=== PATIENT | male | born 1930 | race Caucasian/White ===

== ENCOUNTER 2016-05-13 08:58 | Emergency (ER) | payer MEDICARE, MEDICAID ==
[2016-05-13 08:59] VITALS: BMI 27.8
[2016-05-13 09:11] VITALS: TEMP 98.5
--- NOTE | 2016-05-13 09:13 | EDPRACDOC ---
- General Chief Complaint: Fall Stated Complaint: WEAKNESS Time Seen by Provider: 05/13/16 09:12 Information Source: Patient, Solutions Consultant - History of Present Illness Onset: this morning HPI: FALL ON THE WAY BACK TO THE BATHROOM. PT DOES NOT REMEMBER IF HE HIT HEAD. BROUGHT BY EMS. PER GRAND DAUGHTER FAMILY REPORTS PT MORE THAN LIKELY SLID OUT OF BED. SOME SOB. Allergies/Adverse Reactions: Allergies Penicillins Allergy (Verified 05/13/16 10:43) Hives* Home Medications: Ambulatory Orders Amitriptyline HCl [Elavil] 20 mg PO HS 03/15/14 Gabapentin 300 mg PO TID 03/15/14 Levothyroxine [Synthroid, Levoxyl] 88 mcg PO DAILY 03/15/14 Lubiprostone [Amitiza] 24 - 48 mcg PO DAILY 03/15/14 Omeprazole 40 mg PO DAILY 03/15/14 Ropinirole HCl 2 mg PO HS 03/15/14 Cholecalciferol (Vitamin D3) [Vitamin D3] 5,000 unit PO DAILY 12/10/14 Clopidogrel Bisulfate [Plavix] 75 mg PO DAILY 08/28/15 Furosemide [Lasix] 20 mg PO DAILY 08/28/15 Magnesium Oxide [Mag-Ox] 400 mg PO DAILY 08/28/15 Meclizine HCl [Antivert] 25 mg PO TID 08/28/15 Ranitidine HCl [Zantac] 300 mg PO HS 08/28/15 Rosuvastatin [Crestor] 10 mg PO DAILY 08/28/15 Methylcellulose [Fiber Therapy] 500 mg PO DAILY 11/21/15 Indomethacin 50 mg PO TID 12/06/15 Mometasone Furoate [Nasonex] 1 - 2 sprays ANY DAILY PRN 05/13/16 ED Past Medical History - History Reviewed Yes Nurses notes reviewed and agree except as marked - Patient Medical History Cardiac History: Reports: Coronary Artery Disease, Hypertension, Hypercholesterolemia Respiratory History: Reports: Asthma, COPD, Emphysema GI/ History: Reports: Gastroesophageal Reflux Psychological History: Denies: Depression, Substance Use Disorder Systemic History: Reports: Cancer (PROSTATE), Hypothyroidism Surgical History: Reports: Hernia Surgery (bilat inguinal) - Family Medical History Reports: Cancer (mother - "female organs"). Denies: Hypertension, Diabetes, Stroke, Cardiac Disorders - Social Medical History Smoking Status: Former smoker Social History: Denies: Substance Use Disorder EDM Review of Systems - Review of Systems ROS Negative Except as Marked: Yes All systems reviewed and were negative except as marked - Physical Exam Constitutional: Alert (Awake), No apparent distress Oriented to: Time, Person, Place Last recorded Vital Signs: Last Vital Signs Temp 98.5 F 05/13/16 09:08 Pulse 107 05/13/16 09:08 Resp 18 05/13/16 09:08 BP 159/67 05/13/16 09:08 Pulse Ox Oxygen Pulse Oxygen Saturation O2 Device Nasal Cannula Oxygen Flow Rate Fraction of Inspired Oxygen ( 2 FIO2) - HEENT Head: Normal ( normocephalic) Eye Exam: Normal (PERRL, EOMI, Sclera white) Oropharynx: Normal (Pharynx:Moist without exudate,Gums-no swelling) Nose: No Symptoms Reported (septum midline) Neck: Normal (FROM, trachea at midline) - Respiratory/Cardiovascular Respiratory: Normal - CTA (BBS clear to auscultation without adventitious sounds ) Cardiovascular: Normal (RRR without murmur, gallop or rub) - GI Auscultation: Normal (NABS) Palpation: Normal (Soft,No rebound or guarding, non distended) Tenderness: Non tender Paris's Sign: Negative - Musculoskeletal Back: Normal (Non-Tender) Extremities: Normal (Normal tone, Pulses 2+ No cyanosis or edema, FROM) - Integumentary Skin: Normal, Warm, Dry Lymphatics: Normal (no adenopathy) - Neurologic Memory Impaired: Normal Motor Function: Normal (Normal tone, Pulses 2+ No cyanosis or edema, FROM) Cranial Nerve: Normal (CN II-X11 intact sensation, strength 5/5) Cerebellar: Normal Mood Description: Normal Perception: Normal - Results 05/13/16 11:37 05/13/16 11:37 - EKG EKG #1 EKG Time: 09:46 -: Yes EKG interpreted by me Rate: bpm: 92 [place]: Normal Rhythm: NSR Block: None Hypertrophy: None ST: Normal Comments: NORMAL EKG - Departure Yes I personally saw and evaluated the patient. Disposition: Home Condition: Stable Final Diagnosis: Accidental fall RLL pneumonia Qualifiers: Pneumonia type: due to unspecified organism Qualified Code(s): J18.1 - Lobar pneumonia, unspecified organism Instructions: RICE: Routine Care for Injuries Referrals: None,No Provider [Primary Care Provider] - One Week
[2016-05-13 09:48] LABS: RBC/URINE 20-30 (0-2); WBC/URINE 0-2 (0-2)
[2016-05-13 09:53] LABS: LEUKOCYTES/URINE NEG (NEGATIVE); NITRITE/URINE NEG (NEGATIVE); URINE OCCULT BLOOD NEG (NEG/TRACE)
--- NOTE | 2016-05-13 10:44 | DIRPT ---
CLINICAL DATA: Weakness EXAM: PORTABLE CHEST - 1 VIEW COMPARISON: 04/11/2016 FINDINGS: Cardiac shadow remains enlarged. The previously seen infiltrate in the left base has resolved in the interval from the prior exam. Persistent density is noted in the right hilar/ infrahilar region. Given the chronicity of this area this raises suspicion for possible underlying lesion. IMPRESSION: Persistent right hilar/infrahilar density which may simply represent persistent infiltrate although a given its chronicity raises suspicion for possibility of underlying lesion. CT of the chest when the patient's condition improves may be helpful. Electronically Signed By: Rafael Alvarez M.D. On: 05/13/2016 10:42
[2016-05-13 11:41] LABS: AUTOMATED BASOPHIL 0.7 % (0-2); AUTOMATED EOSINOPHIL 2.3 % (0-5); AUTOMATED LYMPH 8.2 % (17-44); AUTOMATED NEUTROPHIL 83.8 % (45-76); MPV 8.1 fL (7.4-10.4)
[2016-05-13 11:51] LABS: BLOOD UREA NITROGEN 41 MG/DL (9-20); CALCIUM 11.9 MG/DL (8.4-10.2); CALCULATED OSMOLALITY 288 MOs/Kg (270-290); CHLORIDE 102 mEq/L (98-107); CPK (TOTAL ONLY) 43 IU/L (55-170); GLUCOSE 87 MG/DL (70-99); SODIUM LEVEL 145 mEq/L (137-146); TOTAL PROTEIN 7.7 G/DL (6.3-8.2)
--- NOTE | 2016-05-13 13:02 | DIRPT ---
CLINICAL DATA: Weakness. Abnormal chest x-ray is suggestive of persistent area of right-sided infrahilar opacity. EXAM: CT CHEST WITHOUT CONTRAST TECHNIQUE: Multidetector CT imaging of the chest was performed following the standard protocol without IV contrast. COMPARISON: Chest x-ray earlier today as well as previous chest x-ray on 04/11/2016. FINDINGS: There is an area dense consolidation in the peripheral aspect of the superior segment of the right lower lobe spanning a region measuring approximately 7.5 x 5 x 5 cm. This does extend to the pleural surface and is associated with a small right pleural effusion. There are no air bronchograms. Although this may certainly represent focal pneumonia, followup is warranted to exclude malignancy. No other pulmonary mass lesions are identified. There are no enlarged lymph nodes. Lungs show no evidence of pulmonary edema. There is a small hiatal hernia. Spondylosis present of the thoracic spine. IMPRESSION: Dense peripheral consolidation in the superior segment of the right lower lobe extending to abut the pleura. There is an associated small right pleural effusion. Although this could conceivably represent pneumonia, followup is warranted to exclude possible malignancy. Electronically Signed By: Bienvenido Hayes M.D. On: 05/13/2016 13:00
[2016-05-13 13:27] LABS: ALLEN'S TEST PASS; BEb 7.8 (+/- 2); TCO2 34.8 MMOL/L (23-27)
[2016-05-13 13:28] LABS: ABG Draw Site Right Radial
[2016-05-13] MEDS ORDERED: CEFDINIR 300 MG CAP PO ONE (13:36)
[2016-05-13 14:12] VITALS: BP 137/58; PULSE 98
== END 2016-05-13 14:20 | disposition home or self-care (01) ==
LOC: ED 08:58
DX: J18.1 Lobar pneumonia, unspecified organism (principal)
CPT/HCPCS: 36415; 36600; 71010; 71250; 80053; 81001; 82550; 82803; 84484; 85025; 93005; 99283; A9270; J3490

== ENCOUNTER 2016-05-22 11:03 | Inpatient (IN) | payer MEDICARE, MEDICAID ==
[2016-05-22 11:04] VITALS: BMI 27.8
[2016-05-22] MEDS ORDERED: SODIUM CHLORIDE 0.9% 3 ML FLUSH FLUSH PRN ×2 (11:26→16:08)
--- NOTE | 2016-05-22 11:30 | EDPRACDOC ---
- General Information Source: Patient, Bracer - History of Present Illness Onset: TODAY HPI: Patient reports he was seen here recently after a fall, he has continued to have multiple falls - states his left ankle/foot is the problem and it "gives out". Patient denies other injury or pain at this time. Unsure of ever striking his head. Slight redness and swelling to left foot. Pain Severity: Reports: Mild Injuries/Pain Location: Reports: lower extremity Reason for Fall: Reports: unknown Associated Symptoms (Fall): Reports: trouble walking <Manuela Aldrich - Last Filed: 05/22/16 13:30> <Maliha Preston - Last Filed: 05/22/16 14:50> - General Chief Complaint: Fall Stated Complaint: MULTIPLE FALLS Time Seen by Provider: 05/22/16 11:15 - History of Present Illness Allergies/Adverse Reactions: Allergies Penicillins Allergy (Verified 05/22/16 11:21) Hives* Home Medications: Ambulatory Orders Amitriptyline HCl [Elavil] 20 mg PO HS 03/15/14 Gabapentin 300 mg PO TID 03/15/14 Levothyroxine [Synthroid, Levoxyl] 88 mcg PO DAILY 03/15/14 Lubiprostone [Amitiza] 24 - 48 mcg PO DAILY 03/15/14 Omeprazole 40 mg PO DAILY 03/15/14 Ropinirole HCl 2 mg PO HS 03/15/14 Cholecalciferol (Vitamin D3) [Vitamin D3] 5,000 unit PO DAILY 12/10/14 Clopidogrel Bisulfate [Plavix] 75 mg PO DAILY 08/28/15 Furosemide [Lasix] 20 mg PO DAILY 08/28/15 Magnesium Oxide [Mag-Ox] 400 mg PO DAILY 08/28/15 Meclizine HCl [Antivert] 25 mg PO TID 08/28/15 Ranitidine HCl [Zantac] 300 mg PO HS 08/28/15 Rosuvastatin [Crestor] 10 mg PO DAILY 08/28/15 Methylcellulose [Fiber Therapy] 500 mg PO DAILY 11/21/15 Indomethacin 50 mg PO TID 12/06/15 Mometasone Furoate [Nasonex] 1 - 2 sprays ANY DAILY PRN 05/13/16 Diazepam [Valium] 2 mg PO DAILY 05/22/16 Donepezil HCl [Aricept] 5 mg PO DAILY 05/22/16 ED Past Medical History - History Reviewed Yes Nurses notes reviewed and agree except as marked - Patient Medical History Cardiac History: Reports: Coronary Artery Disease, Hypertension, Hypercholesterolemia Respiratory History: Reports: Asthma, COPD, Emphysema GI/ History: Reports: Gastroesophageal Reflux Psychological History: Denies: Depression, Substance Use Disorder Systemic History: Reports: Cancer (PROSTATE), Hypothyroidism Surgical History: Reports: Hernia Surgery (bilat inguinal) - Family Medical History Reports: Cancer (mother - "female organs"). Denies: Hypertension, Diabetes, Stroke, Cardiac Disorders - Social Medical History Smoking Status: Former smoker Social History: Denies: Substance Use Disorder ETOH: None Substance Abuse: None Lives In: Home <Cabrera Aldrichy Alex - Last Filed: 05/22/16 13:30> EDM Review of Systems - Review of Systems ROS Negative Except as Marked: Yes All systems reviewed and were negative except as marked Constitutional: No Symptoms Reported Eyes: No Symptoms Reported Ears: No Symptoms Reported Throat: No Symptoms Reported Nose: No Symptoms Reported Cardiovascular: No Symptoms Reported Gastrointestinal: No Symptoms Reported Genitourinary: No Symptoms Reported Neurological: No Symptoms Reported Musculoskeletal: Ankle, Foot <Leyla Aldrichtany Alex - Last Filed: 05/22/16 13:30> - Physical Exam Constitutional: Alert (Awake), No apparent distress Oriented to: Time, Person, Place Last recorded Vital Signs: Last Vital Signs Temp 98.3 F 05/22/16 11:05 Pulse 91 05/22/16 11:05 Resp 18 05/22/16 11:05 BP 138/65 05/22/16 11:05 Pulse Ox 94 05/22/16 11:05 Oxygen Pulse Oxygen Saturation 94 O2 Device Oxygen Flow Rate Fraction of Inspired Oxygen ( FIO2) - HEENT Head: Normal ( normocephalic) Eye Exam: Normal (PERRL, EOMI, Sclera white) Neck: Normal (FROM, trachea at midline) - Respiratory/Cardiovascular Respiratory: Normal - CTA (BBS clear to auscultation without adventitious sounds ) Cardiovascular: Normal (RRR without murmur, gallop or rub) - GI Auscultation: Normal (NABS) - Musculoskeletal Back: Normal (Non-Tender) Extremities: Other (Left foot/ankle pain - mild swelling/redness to left foot. Normal pulses/cap refill.) - Integumentary Skin: Normal, Warm, Dry Lymphatics: Normal (no adenopathy) - Neurologic Memory Impaired: Normal Motor Function: Normal (Normal tone, Pulses 2+ No cyanosis or edema, FROM) Cranial Nerve: Normal (CN II-X11 intact sensation, strength 5/5) Mood Description: Normal <Manuela Aldrich - Last Filed: 05/22/16 13:30> - Physical Exam Last recorded Vital Signs: Last Vital Signs Temp 98.3 F 05/22/16 11:05 Pulse 72 05/22/16 13:13 Resp 18 05/22/16 13:13 BP 167/73 05/22/16 13:13 Pulse Ox 95 05/22/16 13:13 Oxygen Pulse Oxygen Saturation 95 O2 Device Oxygen Flow Rate Fraction of Inspired Oxygen ( FIO2) <Maliha Preston - Last Filed: 05/22/16 14:50> ED Injury/Fall Exam - Physical Exam Head Injury: no evidence of injury Extremity Exam: pain with movement, tenderness Skin: Normal, Warm, Dry - Ivette Coma Score Best Eye Response (Ivette): (4) open spontaneously Best Verbal Response ([place]): (5) oriented Best Motor Response (Ivette): (6) obeys commands Ivette Total: 15 <Manuela Aldrich - Last Filed: 05/22/16 13:30> - Results 05/22/16 12:00 05/22/16 12:00 - EKG EKG #1 EKG Time: 11:34 -: Yes EKG interpreted by me Rate: bpm: 73 [place]: Normal Rhythm: NSR Block: None ST: Nonsp <Manuela Aldrich - Last Filed: 05/22/16 13:30> - Results 05/22/16 12:00 05/22/16 12:00 WBC 12.1 xk/uL (3.8-10.8) H 05/22/16 12:00 RBC 3.29 xM/uL (4.70-6.10) L 05/22/16 12:00 Hgb 10.6 g/dL (14.0-18.0) L 05/22/16 12:00 Hct 31.4 % (42-52) L 05/22/16 12:00 MCV 95 fL (80-94) H 05/22/16 12:00 MCH 32.3 pg (27-32) H 05/22/16 12:00 MCHC 33.9 g/dl (33-36) 05/22/16 12:00 RDW 12.9 % (11.5-14.5) 05/22/16 12:00 Plt Count 387 xk/uL (130-400) 05/22/16 12:00 MPV 7.9 fL (7.4-10.4) 05/22/16 12:00 Neut % (Auto) 76.0 % (45-76) 05/22/16 12:00 Lymph % (Auto) 13.1 % (17-44) L 05/22/16 12:00 [place] % (Auto) 6.5 % (3-10) 05/22/16 12:00 Eos % (Auto) 3.3 % (0-5) 05/22/16 12:00 Baso % (Auto) 1.1 % (0-2) 05/22/16 12:00 Absolute Neuts (auto) 9.20 xk/uL (1.7-8.2) H 05/22/16 12:00 Absolute Lymphs (auto) 1.57 xk/uL (0.65-4.75) 05/22/16 12:00 Sodium 144 mEq/L (137-146) 05/22/16 12:00 Potassium 5.5 mEq/L (3.5-5.1) H 05/22/16 12:00 Chloride 105 mEq/L (98-107) 05/22/16 12:00 Carbon Dioxide 32 mMOL/L (22-33) 05/22/16 12:00 Anion Gap 13 mEq/L (8-16) 05/22/16 12:00 BUN 35 MG/DL (9-20) H 05/22/16 12:00 Creatinine 1.50 MG/DL (0.66-1.25) H 05/22/16 12:00 Estimated GFR (MDRD) 44 mL/min (>=60) L 05/22/16 12:00 Glucose 96 MG/DL (70-99) 05/22/16 12:00 Calculated Osmolality 285 MOs/Kg (270-290) 05/22/16 12:00 Calcium 11.6 MG/DL (8.4-10.2) H 05/22/16 12:00 Corrected Calcium 11.9 MG/DL (8.4-10.2) H 05/22/16 12:00 Total Bilirubin 0.8 MG/DL (0.2-1.3) 05/22/16 12:00 AST 25 IU/L (17-59) 05/22/16 12:00 ALT 26 IU/L (21-72) 05/22/16 12:00 Alkaline Phosphatase 87 IU/L (50-160) 05/22/16 12:00 Total Protein 7.1 G/DL (6.3-8.2) 05/22/16 12:00 Albumin 3.7 G/DL (3.5-5.0) 05/22/16 12:00 Lab Results 05/22/16 05/22/16 12:00 12:00 WBC 12.1 H RBC 3.29 L Hgb 10.6 L Hct 31.4 L MCV 95 H MCH 32.3 H MCHC 33.9 RDW 12.9 Plt Count 387 MPV 7.9 Neut % (Auto) 76.0 Lymph % (Auto) 13.1 L [place] % (Auto) 6.5 Eos % (Auto) 3.3 Baso % (Auto) 1.1 Absolute Neuts (auto) 9.20 H Absolute Lymphs (auto) 1.57 Sodium 144 Potassium 5.5 H Chloride 105 Carbon Dioxide 32 Anion Gap 13 BUN 35 H Creatinine 1.50 H Estimated GFR (MDRD) 44 L Glucose 96 Calculated Osmolality 285 Calcium 11.6 H Corrected Calcium 11.9 H Total Bilirubin 0.8 AST 25 ALT 26 Alkaline Phosphatase 87 Total Protein 7.1 Albumin 3.7 - Additional Information FREQUENT FALLS, LUNG MASS, NOW HYPERCALCEMIA. POOR PROGNOSIS. <Maliha Preston N - Last Filed: 05/22/16 14:50> <Manuela Aldrich - Last Filed: 05/22/16 13:30> - Departure Education/Counseling Given To: Patient, Family Member Education/Counseling Given Regarding: Diagnosis, Treatment, Prognosis - Physician Consulted Hospitalist Time Called: 14:44 Provider Called: Bryson Gottlieb <Maliha Preston - Last Filed: 05/22/16 14:50> - Departure Condition: Stable Final Diagnosis: Falls, Hypercalcemia, Lung mass Instructions: RICE: Routine Care for Injuries Referrals: None,No Provider [Primary Care Provider] - One Week Prescriptions: No Action Amitriptyline HCl [Elavil] 20 mg PO HS Lubiprostone [Amitiza] 24 - 48 mcg PO DAILY Levothyroxine [Synthroid, Levoxyl] 88 mcg PO DAILY Ropinirole HCl 2 mg PO HS Omeprazole 40 mg PO DAILY Gabapentin 300 mg PO TID Cholecalciferol (Vitamin D3) [Vitamin D3] 5,000 unit PO DAILY Meclizine HCl [Antivert] 25 mg PO TID Magnesium Oxide [Mag-Ox] 400 mg PO DAILY Rosuvastatin [Crestor] 10 mg PO DAILY Furosemide [Lasix] 20 mg PO DAILY Clopidogrel Bisulfate [Plavix] 75 mg PO DAILY Ranitidine HCl [Zantac] 300 mg PO HS Methylcellulose [Fiber Therapy] 500 mg PO DAILY Indomethacin 50 mg PO TID Mometasone Furoate [Nasonex] 1 - 2 sprays ANY DAILY PRN PRN Reason: Nasal Congestion Donepezil HCl [Aricept] 5 mg PO DAILY Diazepam [Valium] 2 mg PO DAILY
[2016-05-22 12:14] LABS: AUTOMATED BASOPHIL 1.1 % (0-2); AUTOMATED EOSINOPHIL 3.3 % (0-5); AUTOMATED LYMPH 13.1 % (17-44); AUTOMATED MONOCYTE 6.5 % (3-10); MPV 7.9 fL (7.4-10.4)
[2016-05-22 12:22] LABS: CALC CORRECTED 11.9 MG/DL (8.4-10.2); CALCIUM 11.6 MG/DL (8.4-10.2); CREATININE 1.5 MG/DL (0.66-1.25); TOTAL PROTEIN 7.1 G/DL (6.3-8.2)
--- NOTE | 2016-05-22 12:31 | DIRPT ---
CLINICAL DATA: Fell today. Hit head. EXAM: CT HEAD WITHOUT CONTRAST TECHNIQUE: Contiguous axial images were obtained from the base of the skull through the vertex without intravenous contrast. COMPARISON: 11/21/2015 FINDINGS: Stable age related cerebral atrophy, ventriculomegaly and periventricular white matter disease. No extra-axial fluid collections are identified. No CT findings for acute hemispheric infarction or intracranial hemorrhage. No mass lesions. The brainstem and cerebellum are normal. No acute skull fracture. The paranasal sinuses and mastoid air cells are clear. The globes are intact. IMPRESSION: Stable age related cerebral atrophy, ventriculomegaly and periventricular white matter disease. No acute intracranial findings or skull fracture. Electronically Signed By: Noman Clayton M.D. On: 05/22/2016 12:29
--- NOTE | 2016-05-22 13:51 | DIRPT ---
CLINICAL DATA: Multiple falls. Swelling and redness. EXAM: LEFT ANKLE COMPLETE - 3+ VIEW COMPARISON: Foot films, dictated separately. FINDINGS: Mild lateral malleolar soft tissue swelling. No acute fracture or dislocation. Achilles and calcaneal spurs. Tibiotalar osteoarthritis. IMPRESSION: Degenerative change and mild lateral soft tissue swelling. No acute osseous abnormality. Electronically Signed By: Kali Riley M.D. On: 05/22/2016 13:48
--- NOTE | 2016-05-22 13:53 | DIRPT ---
CLINICAL DATA: Multiple falls. Redness and swelling. EXAM: LEFT FOOT - COMPLETE 3+ VIEW COMPARISON: Ankle films, dictated separately. FINDINGS: No acute fracture or dislocation. Forefoot soft tissue swelling, including dorsally on the lateral view. Small Achilles and calcaneal spurs. Midfoot degenerative change. Hammertoe deformities. IMPRESSION: Dorsal soft tissue swelling, without acute osseous abnormality. Electronically Signed By: Kali Riley M.D. On: 05/22/2016 13:50
--- NOTE | 2016-05-22 13:54 | DIRPT ---
CLINICAL DATA: Cough, recent fall EXAM: CHEST 2 VIEW COMPARISON: Chest x-rays dated 05/13/2016 and 04/11/2016. Also chest CT dated 05/13/2016. FINDINGS: Masslike consolidation within the posterior aspects of the right lower lobe appears stable compared to recent chest x-rays and chest CT. There is increasing opacity throughout the right lung suggesting additional pneumonia and/or edema. Probable small right pleural effusion. Streaky opacities are again seen at the left lung base, more likely atelectasis than pneumonia. Cardiomediastinal silhouette is stable in size and configuration. Mild cardiomegaly is unchanged. Osseous structures about the chest are unremarkable. IMPRESSION: 1. Stable masslike consolidation within the right mid lung region, localized to the right lower lobe based on previous chest CT, similar in size and extent compared to the recent chest x-rays and chest CT. Findings again compatible with either pneumonia or malignancy. Recommend continued follow-up to ensure resolution. 2. Increased opacities throughout the right lung, suggesting additional pneumonia and/or edema. 3. Probable small right pleural effusion. 4. Probable atelectasis at the left lung base. 5. Stable mild cardiomegaly. Electronically Signed By: Wesly Groves M.D. On: 05/22/2016 13:51
--- NOTE | 2016-05-22 13:54 | DIRPT ---
CLINICAL DATA: Fall EXAM: PELVIS - 1-2 VIEW COMPARISON: 12/06/2015 FINDINGS: Single frontal view of the pelvis submitted. No acute fracture or subluxation. Mild degenerative changes pubic symphysis and lower lumbar spine. Minimal bilateral superior acetabular spurring. IMPRESSION: No acute fracture or subluxation. Mild degenerative changes. Electronically Signed By: Ash Gil M.D. On: 05/22/2016 13:51
--- NOTE | 2016-05-22 13:55 | DIRPT ---
CLINICAL DATA: 86-year-old presenting with multiple recent falls. Initial encounter for a fall earlier today. EXAM: SACRUM AND COCCYX - 2+ VIEW COMPARISON: AP pelvis x-ray 12/06/2015. Bone window images from CT abdomen and pelvis 11/21/2015. FINDINGS: No evidence acute fracture involving the sacrum or coccyx. Sacroiliac joints intact with degenerative changes. Symphysis pubis intact. IMPRESSION: No acute osseous abnormality. Mild degenerative changes in the SI joints. Electronically Signed By: Bryson Han M.D. On: 05/22/2016 13:52
[2016-05-22] MEDS ORDERED: NS 1,000 ML IV ONE (14:44)
[2016-05-22] MEDS ORDERED: Aluminum;Magnesium;Simethicone 30 ML UDC PO PRN (16:08)
[2016-05-22] MEDS ORDERED: MAGNESIUM HYDROXIDE 30 ML BOTTLE PO PRN (16:08)
[2016-05-22] MEDS ORDERED: ALBUTEROL 0.083% 3 ML NEB NEB PRN (16:08)
[2016-05-22] MEDS ORDERED: ACETAMINOPHEN 325 MG/TAB TABLET PO PRN (16:08)
[2016-05-22] MEDS ORDERED: ONDANSETRON HCL 4 MG/2 ML VIAL IV PRN (16:08)
[2016-05-22] MEDS ORDERED: MOMETASONE FUROATE NAS PRN (16:14)
--- NOTE | 2016-05-22 16:18 | HISTPHYS ---
- Chief Complaint Falls at home multiple times over the past month - History of Present Illness 86-year-old gentleman presents emergency department with complaint of multiple falls at home. He has had some dizziness and someone started him on some meclizine which appear to be 1 of his home medications. Despite this therapy he has had continued problems with falls. In the emergency today his fully evaluated find to be hypercalcemic and patient consistently complains of weakness of his left leg. Says he has had no feeling in that leg for 12 years or so. Review of his chest x-ray shows a persistent pulmonary mass or pneumonia patient has been treated 3 times for it once in March here by the emergency department then by his primary care doctor then again last week by the emergency department. After discussion with the patient's family and the patient we plan to proceed with biopsy of this area of his lungs. I have spoken with Dr. Sosa from [facility]. - Medical History Cardiac History: Reports: Coronary Artery Disease, Hypertension, Hypercholesterolemia Respiratory History: Reports: Asthma, COPD, Emphysema GI/ History: Reports: Gastroesophageal Reflux Systemic History: Reports: Cancer (PROSTATE), Hypothyroidism Neurological History: Reports: Dementia (Weakness of left lower extremity) Psychological History: Denies: Depression, Substance Use Disorder - Surgical History Reports: Hernia Surgery (bilat inguinal) - Medictions/Allergies Allergies Penicillins Allergy (Verified 05/22/16 11:21) Hives* Current Medication List: Reviewed Home Medications Amitriptyline HCl [Elavil] 20 mg PO HS 03/15/14 Gabapentin 300 mg PO TID 03/15/14 Levothyroxine [Synthroid, Levoxyl] 88 mcg PO DAILY 03/15/14 Lubiprostone [Amitiza] 24 - 48 mcg PO DAILY 03/15/14 Omeprazole 40 mg PO DAILY 03/15/14 Ropinirole HCl 2 mg PO HS 03/15/14 Cholecalciferol (Vitamin D3) [Vitamin D3] 5,000 unit PO DAILY 12/10/14 Clopidogrel Bisulfate [Plavix] 75 mg PO DAILY 08/28/15 Furosemide [Lasix] 20 mg PO DAILY 08/28/15 Magnesium Oxide [Mag-Ox] 400 mg PO DAILY 08/28/15 Meclizine HCl [Antivert] 25 mg PO TID 08/28/15 Ranitidine HCl [Zantac] 300 mg PO HS 08/28/15 Rosuvastatin [Crestor] 10 mg PO DAILY 08/28/15 Methylcellulose [Fiber Therapy] 500 mg PO DAILY 11/21/15 Indomethacin 50 mg PO TID 12/06/15 Mometasone Furoate [Nasonex] 1 - 2 sprays ANY DAILY PRN 05/13/16 Diazepam [Valium] 2 mg PO DAILY 05/22/16 Donepezil HCl [Aricept] 5 mg PO DAILY 05/22/16 - Family History Reports: Cancer (mother - "female organs"). Denies: Hypertension, Diabetes, Stroke, Cardiac Disorders - Social History Travel Outside of [place] in the Last 3 Months?: No Lives: Alone Smoking Status: Former smoker (Quit after 40 pack years of smoking about 20 years ago) Social History: Denies: Alcohol Use, Substance Use Disorder - Review of Systems Constitutional: No Symptoms Reported (No Fever, chills, wt loss/gain, diaphoresis,fatigue/malaise.), Weakness (Of his left lower extremity which has been present for quite some time he states every time he falls with that leg gives out) Eyes: No Symptoms Reported (No blurry vision, visual changes, eye pain, or eye redness.) Ears: No Symptoms Reported (No ear pain or discharge) Mouth: No Symptoms Reported (No oropharyngeal lesions or erythema) Throat/Neck: No Symptoms Reported (No throat pain or swelling.No oropharyngeal lesions or erythema.) Respiratory: No Symptoms Reported (No cough, wheezing, or shortness of breath.) Cardiovascular: No Symptoms Reported (No chest pain or palpitations.) Gastrointestinal: No Symptoms Reported (No abdominal pain, nausea, vomiting, diarrhea, constipation, or bloody stool.) Genitourinary: No Symptoms Reported (No dysuria or hematuria.) Neurological: Gait Difficulty Musculoskeletal:: No Symptoms Reported Integumentary: No Symptoms Reported (no rashes or lesions) Allergic/Immunologic: No Symptoms Reported (no rashes or lesions) Hematologic: No Symptoms Reported (No chronic anemia, bleeding, or easy bruising.), Other (Lymphatics- no lymph node swelling or pain.) Endocrine: No Symptoms Reported (No thyroid issues, polyuria, or polydipsia.) - Physical Exam Vital Signs: Initial Vitals Temperature 98.3 F 05/22/16 11:05 Pulse Rate 91 05/22/16 11:05 Respiratory Rate 18 05/22/16 11:05 Blood Pressure 138/65 05/22/16 11:05 Pulse Oxygen Saturation 94 05/22/16 11:05 Constitutional: Alert, Well nourished. negative: Confused, Well appearing Oriented to: Time, Person, Place - HEENT Head: Normal (normocephalic, atraumatic.), Other (No cervical lymphadenopathy. No supraclavicular lymphadenopathy. Neck: No palpable mass, supple , trachea midline.) Eye: Normal (pupils equal, reactive to light, and round; EOMI, Sclera white) Oropharynx: Normal (Pharynx: Moist without exudate,Gums-no swelling, No oropharyngeal lesions or erythema, Mucous membranes are dry.) Respiratory: Normal - CTA (Clear to auscultation bilaterally. No wheezing, rales , rhonchi. Chest wall movements are symmetric. No use of accessory muscles to breathe.) - GI Auscultation: Normal (normal active sounds) Palpation: Normal (Soft,non distended,nontender. No hepatosplenomegaly.) Tenderness: Non tender (No rebound or guarding) Paris's Sign: Negative - Musculoskeletal Back: Normal (Non-Tender) Extremities: Normal (Normal tone, DP pulses 2+ bilaterally, No cyanosis or edema bilaterally, FROM bilaterally.) - Integumentary Skin: Normal (Clean, dry, and intact. No rashes. No lesions.) Lymphatics: Normal (No cervical lymphadenopathy. No supraclavicular lymphadenopathy.) - Neurologic Memory Impaired: Normal Motor Function: Normal (Motor 5/5 throughout.Normal tone, Pulses 2+ No cyanosis or edema, FROM) Cranial Nerve: Normal (CN II-XII intact sensation, strength 5/5) Cerebellar: Unable to Test Mood Description: Normal (Fully oriented. Normal and appropriate affect.) Perception: Normal (Normal and appropriate affect.) - Focused CV Perfusion Exam Vital Signs: Last Vital Signs Temp 98.3 F 05/22/16 11:05 Pulse 72 05/22/16 13:13 Resp 18 05/22/16 13:13 BP 167/73 05/22/16 13:13 Pulse Ox 95 05/22/16 13:13 - Lab Results Laboratory Results - last 24 hr 05/22/16 05/22/16 12:00 12:00 WBC 12.1 H RBC 3.29 L Hgb 10.6 L Hct 31.4 L MCV 95 H MCH 32.3 H MCHC 33.9 RDW 12.9 Plt Count 387 MPV 7.9 Neut % (Auto) 76.0 Lymph % (Auto) 13.1 L [place] % (Auto) 6.5 Eos % (Auto) 3.3 Baso % (Auto) 1.1 Absolute Neuts (auto) 9.20 H Absolute Lymphs (auto) 1.57 Sodium 144 Potassium 5.5 H Chloride 105 Carbon Dioxide 32 Anion Gap 13 BUN 35 H Creatinine 1.50 H Estimated GFR (MDRD) 44 L Glucose 96 Calculated Osmolality 285 Calcium 11.6 H Corrected Calcium 11.9 H Total Bilirubin 0.8 AST 25 ALT 26 Alkaline Phosphatase 87 Total Protein 7.1 Albumin 3.7 Laboratory Tests 05/22/16 12:00 Creatinine 1.50 H Corrected Calcium 11.9 H - Diagnostic Findings LEFT ANKLE COMPLETE - 3+ VIEW COMPARISON: Foot films, dictated separately. FINDINGS: Mild lateral malleolar soft tissue swelling. No acute fracture or dislocation. Achilles and calcaneal spurs. Tibiotalar osteoarthritis. IMPRESSION: Degenerative change and mild lateral soft tissue swelling. No acute osseous abnormality. Electronically Signed By: Kali Riley M.D. On: 05/22/2016 13:48 CHEST 2 VIEW COMPARISON: Chest x-rays dated 05/13/2016 and 04/11/2016. Also chest CT dated 05/13/2016. FINDINGS: Masslike consolidation within the posterior aspects of the right lower lobe appears stable compared to recent chest x-rays and chest CT. There is increasing opacity throughout the right lung suggesting additional pneumonia and/or edema. Probable small right pleural effusion. Streaky opacities are again seen at the left lung base, more likely atelectasis than pneumonia. Cardiomediastinal silhouette is stable in size and configuration. Mild cardiomegaly is unchanged. Osseous structures about the chest are unremarkable. IMPRESSION: 1. Stable masslike consolidation within the right mid lung region, localized to the right lower lobe based on previous chest CT, similar in size and extent compared to the recent chest x-rays and chest CT. Findings again compatible with either pneumonia or malignancy. Recommend continued follow-up to ensure resolution. 2. Increased opacities throughout the right lung, suggesting additional pneumonia and/or edema. 3. Probable small right pleural effusion. 4. Probable atelectasis at the left lung base. 5. Stable mild cardiomegaly. Electronically Signed By: Wesly Groves M.D. On: 05/22/2016 13:51 LEFT FOOT - COMPLETE 3+ VIEW COMPARISON: Ankle films, dictated separately. FINDINGS: No acute fracture or dislocation. Forefoot soft tissue swelling, including dorsally on the lateral view. Small Achilles and calcaneal spurs. Midfoot degenerative change. Hammertoe deformities. IMPRESSION: Dorsal soft tissue swelling, without acute osseous abnormality. Electronically Signed By: Kali Riley M.D. On: 05/22/2016 13:50 CT HEAD WITHOUT CONTRAST TECHNIQUE: Contiguous axial images were obtained from the base of the skull through the vertex without intravenous contrast. COMPARISON: 11/21/2015 FINDINGS: Stable age related cerebral atrophy, ventriculomegaly and periventricular white matter disease. No extra-axial fluid collections are identified. No CT findings for acute hemispheric infarction or intracranial hemorrhage. No mass lesions. The brainstem and cerebellum are normal. No acute skull fracture. The paranasal sinuses and mastoid air cells are clear. The globes are intact. IMPRESSION: Stable age related cerebral atrophy, ventriculomegaly and periventricular white matter disease. No acute intracranial findings or skull fracture. Electronically Signed By: Noman Clayton M.D. On: 05/22/2016 12:29 EXAM: PELVIS - 1-2 VIEW COMPARISON: 12/06/2015 FINDINGS: Single frontal view of the pelvis submitted. No acute fracture or subluxation. Mild degenerative changes pubic symphysis and lower lumbar spine. Minimal bilateral superior acetabular spurring. IMPRESSION: No acute fracture or subluxation. Mild degenerative changes. Electronically Signed By: Ash Gil M.D. On: 05/22/2016 13:51 SACRUM AND COCCYX - 2+ VIEW COMPARISON: AP pelvis x-ray 12/06/2015. Bone window images from CT abdomen and pelvis 11/21/2015. FINDINGS: No evidence acute fracture involving the sacrum or coccyx. Sacroiliac joints intact with degenerative changes. Symphysis pubis intact. IMPRESSION: No acute osseous abnormality. Mild degenerative changes in the SI joints. Electronically Signed By: Bryson Han M.D. On: 05/22/2016 13:52 EXAM: CT CHEST WITHOUT CONTRAST TECHNIQUE: Multidetector CT imaging of the chest was performed following the standard protocol without IV contrast. COMPARISON: Chest x-ray earlier today as well as previous chest x-ray on 04/11/2016. FINDINGS: There is an area dense consolidation in the peripheral aspect of the superior segment of the right lower lobe spanning a region measuring approximately 7.5 x 5 x 5 cm. This does extend to the pleural surface and is associated with a small right pleural effusion. There are no air bronchograms. Although this may certainly represent focal pneumonia, followup is warranted to exclude malignancy. No other pulmonary mass lesions are identified. There are no enlarged lymph nodes. Lungs show no evidence of pulmonary edema. There is a small hiatal hernia. Spondylosis present of the thoracic spine. IMPRESSION: Dense peripheral consolidation in the superior segment of the right lower lobe extending to abut the pleura. There is an associated small right pleural effusion. Although this could conceivably represent pneumonia, followup is warranted to exclude possible malignancy. Electronically Signed By: Bienvenido Hayes M.D. On: 05/13/2016 13:00 - Assessment (1) Hypercalcemia E83.52 - HYPERCALCEMIA Acute Present on Admission: Yes Clearly could be affecting his mentation and his ability to ambulate. Hypercalcemia can cause dizziness. Patient be admitted into the hospital start him on fluids in Lasix. He appears to be fairly euvolemic at this time therefore fluids alone will probably not be sufficient. (2) Lung mass R91.8 - OTHER NONSPECIFIC ABNORMAL FINDING OF LUNG FIELD Acute Present on Admission: Yes Lung mass has been noted since March of 2016. Patient has received 3 courses of antibiotics and he has had no change in this mass. I highly suspect that the patient has a lung tumor. This would be consistent with the hyperkalemia. I have spoken with Dr. Sosa from [facility] will plan to proceed with a biopsy tomorrow. (3) Accidental fall W19.XXXA - UNSPECIFIED FALL, INITIAL ENCOUNTER Acute Present on Admission: Yes Patient with multiple accidental falls he states that his left leg gives way. If there is tumor in his lung it is very possible he may have a spinal Mets or that he simply may have a neuropathy which is acting up. It may be that he has no proprioceptive properties in that leg. Will ask Physical therapy to evaluate the patient and consider our next step based on their evaluation. (4) COPD (chronic obstructive pulmonary disease) J44.9 - CHRONIC OBSTRUCTIVE PULMONARY DISEASE, UNSPECIFIED Chronic Present on Admission: Yes Qualifiers: COPD type: emphysema Chronic bronchitis type: C Emphysema type: centrilobular Qualified Code(s): J43.2 - Centrilobular emphysema Patient with long history of CHRONIC OBSTRUCTIVE PULMONARY DISEASE. Has a heavy smoker for quite some time quit multiple years ago. Will provide him with nebs Q 6 hours and q.2 hours p.r.n. monitor closely. Currently he does not appear to have any acute wheezing. (5) Gastroesophageal reflux disease K21.9 - GASTRO-ESOPHAGEAL REFLUX DISEASE WITHOUT ESOPHAGITIS Chronic Qualifiers: Esophagitis presence: E On proton pump inhibitor therapy (6) Hypothyroidism E03.9 - HYPOTHYROIDISM, UNSPECIFIED Chronic Qualifiers: Hypothyroidism type: H On Synthroid therapy. Check TSH. (7) ALTAGRACIA (obstructive sleep apnea) G47.33 - OBSTRUCTIVE SLEEP APNEA (ADULT) (PEDIATRIC) Chronic Monitor continue CPAP use. In the past he has used 2 L of oxygen at night. Will want to continue what his usual home regimen is. - Plan Admit biopsy the lung. Treat underlying hypercalcemia Case Care Discussed with: Patient, Consultants, Family, Nursing Staff Total Time: 65 minutes Critical Care: No Couseling Time (>50% in counseling/coordination): No
[2016-05-22] MEDS ORDERED: NS 1,000 ML IV SCH (17:00)
[2016-05-22] MEDS: NS 1,000 ML IV SCH (17:22)
[2016-05-22 17:47] LABS: LEUKOCYTES/URINE NEG (NEGATIVE); NITRITE/URINE NEG (NEGATIVE); URINE OCCULT BLOOD 1+ (NEG/TRACE); WBC/URINE 0-2 (0-2)
[2016-05-22] MEDS ORDERED: SODIUM CHLORIDE 0.9% 3 ML FLUSH FLUSH SCH (18:00)
[2016-05-22] MEDS: SODIUM CHLORIDE 0.9% 3 ML FLUSH FLUSH SCH (18:04)
[2016-05-22] MEDS: ENOXAPARIN 40 MG/0.4 ML PFS SQ SCH (18:06)
[2016-05-22] MEDS ORDERED: Vaccine Screening Complete SCH (19:00)
[2016-05-22] MEDS: Albuterol/Ipratropium Neb 3 ML NEB NEB SCH (19:29)
[2016-05-22] MEDS: FUROSEMIDE 40 MG/4 ML VIAL IV SCH (21:08)
[2016-05-23] MEDS: NS 1,000 ML IV SCH ×2 (00:03→16:50)
[2016-05-23] MEDS: Albuterol/Ipratropium Neb 3 ML NEB NEB SCH ×4 (01:35→20:36)
[2016-05-23] MEDS: PANTOPRAZOLE 40 MG TAB PO SCH (06:12)
[2016-05-23] MEDS: FUROSEMIDE 40 MG/4 ML VIAL IV SCH ×3 (06:12→21:17)
[2016-05-23] MEDS: SODIUM CHLORIDE 0.9% 3 ML FLUSH FLUSH SCH ×2 (06:21→16:52)
[2016-05-23 06:43] LABS: AUTOMATED BASOPHIL 0.8 % (0-2); AUTOMATED EOSINOPHIL 4.7 % (0-5); AUTOMATED LYMPH 11.1 % (17-44); AUTOMATED NEUTROPHIL 76.4 % (45-76); MPV 8.2 fL (7.4-10.4)
[2016-05-23 06:52] LABS: PARTIAL THROMB. TIME 31.1 SEC (22-35); PT-INR 1.2
[2016-05-23 07:14] LABS: BLOOD UREA NITROGEN 27 MG/DL (9-20); CALC CORRECTED 11.2 MG/DL (8.4-10.2); CALCIUM 9.5 MG/DL (8.4-10.2); CALCULATED OSMOLALITY 278 MOs/Kg (270-290); CHLORIDE 106 mEq/L (98-107); GLUCOSE 103 MG/DL (70-99); SODIUM LEVEL 142 mEq/L (137-146); TOTAL PROTEIN 4.9 G/DL (6.3-8.2)
[2016-05-23] MEDS: LUBIPROSTONE 24 MCG CAP PO SCH (08:53)
[2016-05-23] MEDS: DONEPEZIL HCL 5 MG TAB PO SCH (08:53)
[2016-05-23] MEDS: POLYCARBOPHIL 500 MG TAB PO SCH (08:53)
[2016-05-23] MEDS: ROSUVASTATIN 10 MG TAB PO SCH (08:53)
[2016-05-23] MEDS ORDERED: Non-Formulary Medication ITEM (Omeprazole [Omeprazole] 40 MG) PO SCH (09:00)
[2016-05-23] MEDS ORDERED: METHYLCELLULOSE 500 MG PO SCH (09:00)
--- NOTE | 2016-05-23 14:39 | GENMEDPROG ---
Chief Complaint: Falls Subjective Note: Patient resting comfortably this morning. Says that his back hurts, but he was instructed to stay up in a chair at the bedside as long as possible this morning. Notes Reviewed: Yes Events from last night noted and discussed with Clinical Staff Current Medication List: Reviewed Currently: Reports: CHOW. Denies: Cough, Wheezing, SOB DVT Prophylaxis: Yes - Physical Examination Vital Signs and I&O: Last Vital Signs Temp 98.4 F 05/23/16 14:21 Pulse 83 05/23/16 14:21 Resp 18 05/23/16 14:21 BP 104/50 L 05/23/16 14:21 Pulse Ox 97 05/23/16 14:21 Oxygen Pulse Oxygen Saturation 97 O2 Device Nasal Cannula Oxygen Flow Rate 2 Fraction of Inspired Oxygen ( FIO2) Intake & Output 05/21/16 05/22/16 05/23/16 05/24/16 06:59 06:59 06:59 06:59 Intake Total 3141 705 Output Total 1600 750 Balance 1541 -45 Patient's weight 76.289 kg General: Alert, Oriented x3, No acute distress, Well appearing, Well nourished, Other (Normal and appropriate affect) HEENT: EOMI (Sclera white) Neck: Normal Trachea alignment, Normal inspection Lymphatics: Normal (No cervical lymphadenopathy. No supraclavicular lymphadenopathy.) Respiratory: Normal - CTA (Clear to auscultation bilaterally. No wheezing, rales , rhonchi. Chest wall movements are symmetric. No use of accessory muscles to breathe.) Cardiovascular: Regular rate, No Gallops,Rubs/Murmurs GI: Normal bowel sounds, Soft, Non tender (non distended) Extremities/Musculoskeletal: Other (Normal Tone). negative: Edema, Cyanosis Skin: No rashes, No significant lesion Neurological: Cranial Nerves (II-XII intact) Psych/Mental Status: Normal Affect (Fully oriented, [place] and appropriate affect ) Slightly frail appearing elderly male appearing his stated age resting comfortably in a chair at the bedside. Lab/DI/Studies Reviewed: Laboratory Tests 05/22/16 05/23/16 05/23/16 12:00 06:00 06:00 WBC 13.1 H Hgb 8.7 L D Hct 26.3 L Creatinine 1.50 H 1.50 H - Assessment (1) Falls Acute Comment/Plan: Likely due to his hypercalcemia, possibly due to metastatic cancer and overall deconditioning. Will be seen by physical therapy today. (2) Hypercalcemia Acute E83.52 - HYPERCALCEMIA Comment/Plan: Clearly could be affecting his mentation and his ability to ambulate. Hypercalcemia can cause dizziness. Patient has been admitted to the hospital, started on IV fluids and Lasix. He appears to be fairly euvolemic at this time, therefore fluids along probably not be sufficient. (3) Lung mass Acute R91.8 - OTHER NONSPECIFIC ABNORMAL FINDING OF LUNG FIELD Comment/Plan : Lung mass has been noted since March of 2016. Patient has received 3 courses of antibiotics and he has had no change in this mass. I highly suspect that the patient has a lung tumor. This would be consistent with the hyperkalemia. Admitting physician spoke with [facility], who plan biopsy today. However, the patient has been on Plavix and this needs to be discontinued for 5 days. As such, the earliest he can have his biopsy done is on this coming SundayMay 29. (4) Respiratory distress Acute R06.00 - DYSPNEA, UNSPECIFIED Comment/Plan: Patient has increasing shortness of breath and labored breathing over the last few days, likely related to his pulmonary lesion, which may be a mass. He was treated for pneumonia several times and his mass did not change. (5) COPD (chronic obstructive pulmonary disease) Chronic J44.9 - CHRONIC OBSTRUCTIVE PULMONARY DISEASE, UNSPECIFIED Qualifiers: COPD type: emphysema Emphysema type: centrilobular Qualified Code(s): J43.2 - Centrilobular emphysema Comment/Plan: Patient with long history of CHRONIC OBSTRUCTIVE PULMONARY DISEASE. Has a heavy smoker for quite some time quit multiple years ago. Will provide him with nebs Q 6 hours and q.2 hours p.r.n. monitor closely. Currently he does not appear to have any acute wheezing. (6) Gastroesophageal reflux disease Chronic K21.9 - GASTRO-ESOPHAGEAL REFLUX DISEASE WITHOUT ESOPHAGITIS Comment /Plan: On proton pump inhibitor therapy (7) Hypothyroidism Chronic E03.9 - HYPOTHYROIDISM, UNSPECIFIED Comment/Plan: On Synthroid therapy. Check TSH. - Plan Unfortunately seems the patient cannot have a lung biopsy done in the next few days. He is continues to be short of breath, and has had multiple falls. Will treat his hypercalcemia, and have him evaluated by Physical therapy. He can have lung biopsy early next week, whether he is still in the hospital or as an outpatient.
[2016-05-23] MEDS: ENOXAPARIN 40 MG/0.4 ML PFS SQ SCH (16:52)
[2016-05-24] MEDS: Albuterol/Ipratropium Neb 3 ML NEB NEB SCH ×4 (02:11→20:53)
[2016-05-24] MEDS: PANTOPRAZOLE 40 MG TAB PO SCH (06:03)
[2016-05-24] MEDS: FUROSEMIDE 40 MG/4 ML VIAL IV SCH ×2 (06:03→16:52)
[2016-05-24] MEDS: SODIUM CHLORIDE 0.9% 3 ML FLUSH FLUSH SCH ×2 (06:18→17:15)
[2016-05-24 07:03] LABS: BLOOD UREA NITROGEN 28 MG/DL (9-20); CALCIUM 10.5 MG/DL (8.4-10.2); CALCULATED OSMOLALITY 276 MOs/Kg (270-290); CHLORIDE 99 mEq/L (98-107); GLUCOSE 88 mg/dL (70-99); SODIUM LEVEL 141 mEq/L (137-146)
[2016-05-24] MEDS: ROSUVASTATIN 10 MG TAB PO SCH (07:56)
[2016-05-24] MEDS: POLYCARBOPHIL 500 MG TAB PO SCH (07:56)
[2016-05-24] MEDS: DONEPEZIL HCL 5 MG TAB PO SCH (07:56)
[2016-05-24] MEDS: LUBIPROSTONE 24 MCG CAP PO SCH (07:56)
[2016-05-24] MEDS ORDERED: ALPRAZOLAM 0.25 MG TAB PO PRN (09:29)
[2016-05-24] MEDS: NS 1,000 ML IV SCH ×2 (12:44→23:38)
--- NOTE | 2016-05-24 12:49 | GENMEDPROG ---
Chief Complaint: Hypercalcemia, lung mass Subjective Note: He is resting comfortably today, feels better than before. He is wondering when his surgery will be on Sunday, he is referring to his lung biopsy. Notes Reviewed: Yes: Events from last night noted and discussed with Clinical Staff Current Medication List: Reviewed Currently: Reports: CHOW. Denies: Cough, Wheezing, SOB DVT Prophylaxis: Yes - Physical Examination Vital Signs and I&O: Last Vital Signs Temp 99 F 05/24/16 06:00 Pulse 82 05/24/16 08:00 Resp 18 05/24/16 06:00 BP 132/63 05/24/16 06:00 Pulse Ox 94 05/24/16 08:00 Oxygen Pulse Oxygen Saturation 94 O2 Device Nasal Cannula Oxygen Flow Rate 2 Fraction of Inspired Oxygen ( FIO2) Intake & Output 05/22/16 05/23/16 05/24/16 05/25/16 06:59 06:59 06:59 06:59 Intake Total 3141 945 500 Output Total 1600 4100 250 Balance 1541 -3155 250 Patient's weight 76.289 kg 75.495 kg General: Alert, Oriented x3, No acute distress, Well appearing, Well nourished, Other (Normal and appropriate affect) HEENT: EOMI (Sclera white) Neck: Normal Trachea alignment, Normal inspection Lymphatics: Normal (No cervical lymphadenopathy. No supraclavicular lymphadenopathy.) Respiratory: Normal - CTA (Clear to auscultation bilaterally. No wheezing, rales , rhonchi. Chest wall movements are symmetric. No use of accessory muscles to breathe.) Cardiovascular: Regular rate, No Gallops,Rubs/Murmurs GI: Normal bowel sounds, Soft, Non tender (non distended) Extremities/Musculoskeletal: Other (Normal Tone). negative: Edema, Cyanosis Skin: No rashes, No significant lesion Neurological: Cranial Nerves (II-XII intact) Psych/Mental Status: Normal Affect (Fully oriented, [place] and appropriate affect ) Lab/DI/Studies Reviewed: Laboratory Tests 05/23/16 05/24/16 06:00 05:25 Potassium 4.9 BUN 28 H Creatinine 1.50 H 1.70 H Calcium 9.5 10.5 H - Assessment (1) Falls Acute Comment/Plan: Likely due to his hypercalcemia, possibly due to metastatic cancer and overall deconditioning. Physical therapy is following. (2) Hypercalcemia Acute E83.52 - HYPERCALCEMIA Comment/Plan: Clearly could be affecting his mentation and his ability to ambulate. Hypercalcemia can also cause dizziness, it is slightly improved, overall but is worse compared to yesterday. I will increase his hydration today, and cut back on his IV Lasix. (3) Lung mass Acute R91.8 - OTHER NONSPECIFIC ABNORMAL FINDING OF LUNG FIELD Comment/Plan : Lung mass has been noted since March of 2016. Patient has received 3 courses of antibiotics and he has had no change in this mass. I highly suspect that the patient has a lung tumor. This would be consistent with the hyperkalemia. Admitting physician spoke with [facility], who plan biopsy today. However, the patient has been on Plavix and this needs to be discontinued for 5 days. As such, the earliest he can have his biopsy done is on this coming SundayMay 29. (4) Respiratory distress Acute R06.00 - DYSPNEA, UNSPECIFIED Comment/Plan: Patient has increasing shortness of breath and labored breathing over the last few days, likely related to his pulmonary lesion, which may be a mass. He was treated for pneumonia several times and his mass did not change. (5) COPD (chronic obstructive pulmonary disease) Chronic J44.9 - CHRONIC OBSTRUCTIVE PULMONARY DISEASE, UNSPECIFIED Qualifiers: COPD type: emphysema Emphysema type: centrilobular Qualified Code(s): J43.2 - Centrilobular emphysema Comment/Plan: Patient with long history of CHRONIC OBSTRUCTIVE PULMONARY DISEASE. Has a heavy smoker for quite some time quit multiple years ago. Will provide him with nebs Q 6 hours and q.2 hours p.r.n. monitor closely. Currently he does not appear to have any acute wheezing. (6) Gastroesophageal reflux disease Chronic K21.9 - GASTRO-ESOPHAGEAL REFLUX DISEASE WITHOUT ESOPHAGITIS Comment /Plan: On proton pump inhibitor therapy (7) Hypothyroidism Chronic E03.9 - HYPOTHYROIDISM, UNSPECIFIED Comment/Plan: On Synthroid therapy. Check TSH. - Plan Continue present care, following physical therapy recommendations and treating as hypercalcemia. If he is medically stable, I plan to discharge him from the hospital this week, he can have his lung biopsy performed as an outpatient.
[2016-05-24] MEDS: ENOXAPARIN 30 MG/0.3 ML PFS SQ SCH (16:53)
[2016-05-25] MEDS: Albuterol/Ipratropium Neb 3 ML NEB NEB SCH ×4 (01:50→19:26)
[2016-05-25 04:12] LABS: BLOOD UREA NITROGEN 22 MG/DL (9-20); CALCIUM 10.1 MG/DL (8.4-10.2); CALCULATED OSMOLALITY 269 MOs/Kg (270-290); CHLORIDE 97 mEq/L (98-107); GLUCOSE 94 mg/dL (70-99); SODIUM LEVEL 138 mEq/L (137-146)
[2016-05-25] MEDS: PANTOPRAZOLE 40 MG TAB PO SCH (04:59)
[2016-05-25] MEDS: SODIUM CHLORIDE 0.9% 3 ML FLUSH FLUSH SCH ×2 (04:59→17:27)
[2016-05-25] MEDS ORDERED: Magnesium Sulfate 2 gm/D5W 2 GM/50 ML RTU IV ONE (05:00)
[2016-05-25] MEDS: POLYCARBOPHIL 500 MG TAB PO SCH (07:46)
[2016-05-25] MEDS: DONEPEZIL HCL 5 MG TAB PO SCH (07:46)
[2016-05-25] MEDS: ROSUVASTATIN 10 MG TAB PO SCH (07:46)
[2016-05-25] MEDS: LUBIPROSTONE 24 MCG CAP PO SCH (07:46)
[2016-05-25] MEDS: FUROSEMIDE 40 MG/4 ML VIAL IV SCH ×2 (07:46→15:08)
--- NOTE | 2016-05-25 11:59 | GENMEDPROG ---
Chief Complaint: Dizziness, falls, lung mass Subjective Note: Patient is resting comfortably this morning. 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 Notes Reviewed: Yes: Events from last night noted and discussed with Clinical Staff Current Medication List: Reviewed Currently: Reports: CHOW. Denies: Cough, Wheezing, SOB DVT Prophylaxis: Yes - Physical Examination Vital Signs and I&O: Last Vital Signs Temp 98.1 F 05/25/16 09:26 Pulse 105 05/25/16 09:26 Resp 20 05/25/16 09:26 BP 119/62 05/25/16 09:26 Pulse Ox 98 05/25/16 09:26 Oxygen Pulse Oxygen Saturation 98 O2 Device Nasal Cannula Oxygen Flow Rate 2 Fraction of Inspired Oxygen ( FIO2) Intake & Output 05/23/16 05/24/16 05/25/16 05/26/16 06:59 06:59 06:59 06:59 Intake Total 3141 945 2697 240 Output Total 1600 4100 3000 700 Balance 1541 -3155 -303 -460 Patient's weight 76.289 kg 75.495 kg 73.227 kg General: Alert, Oriented x3, No acute distress, Well appearing, Well nourished, Other (Normal and appropriate affect) HEENT: EOMI (Sclera white) Neck: Normal Trachea alignment, Normal inspection Lymphatics: Normal (No cervical lymphadenopathy. No supraclavicular lymphadenopathy.) Respiratory: Normal - CTA (Clear to auscultation bilaterally. No wheezing, rales , rhonchi. Chest wall movements are symmetric. No use of accessory muscles to breathe.) Cardiovascular: Regular rate, No Gallops,Rubs/Murmurs GI: Normal bowel sounds, Soft, Non tender (non distended) Extremities/Musculoskeletal: Other (Normal Tone). negative: Edema, Cyanosis Skin: No rashes, No significant lesion Neurological: Cranial Nerves (II-XII intact) Psych/Mental Status: Normal Affect (Fully oriented, Norla and appropriate affect ) Lab/DI/Studies Reviewed: Laboratory Tests 05/23/16 05/24/16 05/25/16 06:00 05:25 03:45 Potassium 4.0 BUN 22 H Creatinine 1.50 H 1.70 H 1.40 H Calcium 10.1 - Assessment (1) Falls Acute Comment/Plan: Likely due to his hypercalcemia, possibly due to metastatic cancer and overall deconditioning. Physical therapy is following, recommend a short snf stay at discharge. (2) Hypercalcemia Acute E83.52 - HYPERCALCEMIA Comment/Plan: Clearly could be affecting his mentation and his ability to ambulate. Hypercalcemia can also cause dizziness, it is slightly improved, overall but is worse compared to yesterday. With increased hydration, his renal function and hypercalcemia are better today. (3) Lung mass Acute R91.8 - OTHER NONSPECIFIC ABNORMAL FINDING OF LUNG FIELD Comment/Plan : Lung mass has been noted since March of 2016. Patient has received 3 courses of antibiotics and he has had no change in this mass. I highly suspect that the patient has a lung tumor. This would be consistent with the hyperkalemia. Admitting physician spoke with Interventional Radiology, who plan biopsy today. However, the patient has been on Plavix and this needs to be discontinued for 5 days. As such, the earliest he can have his biopsy done is on this coming SundayMay 29. I will get in touch later this afternoon with the patient's grandson Jose whom he has been living for the last 5 years. I want to update him on the situation, and talk about the timing of his lung biopsy. (4) Respiratory distress Acute R06.00 - DYSPNEA, UNSPECIFIED Comment/Plan: Patient has increasing shortness of breath and labored breathing over the last few days, likely related to his pulmonary lesion, which may be a mass. He was treated for pneumonia several times and his mass did not change. (5) COPD (chronic obstructive pulmonary disease) Chronic J44.9 - CHRONIC OBSTRUCTIVE PULMONARY DISEASE, UNSPECIFIED Qualifiers: COPD type: emphysema Emphysema type: centrilobular Qualified Code(s): J43.2 - Centrilobular emphysema Comment/Plan: Patient with long history of CHRONIC OBSTRUCTIVE PULMONARY DISEASE. Has a heavy smoker for quite some time quit multiple years ago. Will provide him with nebs Q 6 hours and q.2 hours p.r.n. monitor closely. Currently he does not appear to have any acute wheezing. (6) Gastroesophageal reflux disease Chronic K21.9 - GASTRO-ESOPHAGEAL REFLUX DISEASE WITHOUT ESOPHAGITIS Comment /Plan: On proton pump inhibitor therapy (7) Hypothyroidism Chronic E03.9 - HYPOTHYROIDISM, UNSPECIFIED Comment/Plan: On Synthroid therapy. Check TSH. Case Care Discussed with: Patient, Family, Nursing Staff Total Time: 42
[2016-05-25] MEDS: NS 1,000 ML IV SCH ×2 (14:07→20:45)
[2016-05-25] MEDS: ENOXAPARIN 30 MG/0.3 ML PFS SQ SCH (17:53)
[2016-05-26] MEDS: Albuterol/Ipratropium Neb 3 ML NEB NEB SCH ×3 (01:38→14:18)
[2016-05-26] MEDS: PANTOPRAZOLE 40 MG TAB PO SCH (04:22)
[2016-05-26] MEDS: SODIUM CHLORIDE 0.9% 3 ML FLUSH FLUSH SCH (04:22)
[2016-05-26 07:59] LABS: BLOOD UREA NITROGEN 15 MG/DL (9-20); CALCIUM 10.7 MG/DL (8.4-10.2); CALCULATED OSMOLALITY 266 MOs/Kg (270-290); CHLORIDE 99 mEq/L (98-107); GLUCOSE 87 mg/dL (70-99); SODIUM LEVEL 138 mEq/L (137-146)
[2016-05-26] MEDS: DONEPEZIL HCL 5 MG TAB PO SCH (10:05)
[2016-05-26] MEDS: FUROSEMIDE 40 MG/4 ML VIAL IV SCH (10:05)
[2016-05-26] MEDS: ROSUVASTATIN 10 MG TAB PO SCH (10:06)
[2016-05-26] MEDS: POLYCARBOPHIL 500 MG TAB PO SCH (10:06)
[2016-05-26] MEDS: LUBIPROSTONE 24 MCG CAP PO SCH (10:06)
[2016-05-26] MEDS ORDERED: BENZONATATE 100 MG PERLES PO PRN (10:30)
[2016-05-26] MEDS: NS 1,000 ML IV SCH (11:17)
[2016-05-26] MEDS ORDERED: ZOLEDRONIC ACID 4 MG in NS 100 ML IV ONE (12:00)
--- NOTE | 2016-05-26 13:12 | PCM.DCS92 ---
- Final/Secondary Discharge Diagnosis (1) Falls Acute Comment: Likely due to his hypercalcemia, possibly due to metastatic cancer and overall deconditioning. Physical therapy is following, recommend a short snf stay at discharge. He studies and confusion are much improved currently. (2) Hypercalcemia Acute E83.52 - HYPERCALCEMIA Present on Admission: Yes Comment: Clearly could be affecting his mentation and his ability to ambulate at the time of admission to the hospital. Hypercalcemia can also cause dizziness, it is now overall improved, the patient is no longer symptomatic. With increased hydration, and cutting back on his IV Lasix his calcium is slightly elevated today, but not severely so. 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 He should have a calcium level checked in about a week. (3) Lung mass Acute R91.8 - OTHER NONSPECIFIC ABNORMAL FINDING OF LUNG FIELD Present on Admission: Yes Comment: Lung mass has been noted since March of 2016. Patient has received 3 courses of antibiotics and he has had no change in this mass. I highly suspect that the patient has a lung tumor. This would be consistent with the hyperkalemia. Admitting physician spoke with Interventional Radiology, who plan biopsy today. However, the patient has been on Plavix and this needs to be discontinued for 5 days. As such, the earliest he can have his biopsy done is on this coming SundayMay 29. Interventional Radiology has been contacted by nursing staff today, to ensure that he has an outpatient appointment on SundayMay 29. He will be brought back from his nursing facility for this appointment. In the meantime, his Plavix is being held. It should be reinstated after the biopsy. (4) Respiratory distress Acute R06.00 - DYSPNEA, UNSPECIFIED Comment: Patient has increasing shortness of breath and labored breathing over the last few days, likely related to his pulmonary lesion, which may be a mass. He was treated for pneumonia several times and his mass did not change. 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 Has a heavy smoker for quite some time quit multiple years ago. Will provide him with nebs Q 6 hours and q.2 hours p.r.n. monitor closely. Currently he does not appear to have any acute wheezing. (6) Gastroesophageal reflux disease Chronic K21.9 - GASTRO-ESOPHAGEAL REFLUX DISEASE WITHOUT ESOPHAGITIS Comment : On proton pump inhibitor therapy (7) Hypothyroidism Chronic E03.9 - HYPOTHYROIDISM, UNSPECIFIED Comment: On Synthroid therapy. Check TSH. Discharge Disposition: [facility] Facility Discharge Condition: Improved Cognitive Discharge Status: Unimpaired Fuctional Discharge Status: Walker Assistance Physician Follow up/Referrals: None,No Provider [NonStaff] - One Week Home Medications / New Prescriptions: Continue Amitriptyline HCl [Elavil] 20 mg PO HS Lubiprostone [Amitiza] 24 - 48 mcg PO DAILY Levothyroxine [Synthroid, Levoxyl] 88 mcg PO DAILY Ropinirole HCl 2 mg PO HS Omeprazole 40 mg PO DAILY Gabapentin 300 mg PO TID Cholecalciferol (Vitamin D3) [Vitamin D3] 5,000 unit PO DAILY Meclizine HCl [Antivert] 25 mg PO TID Magnesium Oxide [Mag-Ox] 400 mg PO DAILY Rosuvastatin [Crestor] 10 mg PO DAILY Furosemide [Lasix] 20 mg PO DAILY Ranitidine HCl [Zantac] 300 mg PO HS Methylcellulose [Fiber Therapy] 500 mg PO DAILY Indomethacin 50 mg PO TID Mometasone Furoate [Nasonex] 1 - 2 sprays ANY DAILY PRN PRN Reason: Nasal Congestion Donepezil HCl [Aricept] 5 mg PO DAILY Diazepam [Valium] 2 mg PO DAILY Discontinued Clopidogrel Bisulfate [Plavix] 75 mg PO DAILY O2 Device: Nasal Cannula - DC Summary Notes HPI/Notes: This is a pleasant 86-year-old male with a history of lung mass suspicious for lung cancer, was admitted to the hospital with dizziness and unsteadiness and fall at home, likely associated to hypercalcemia of malignancy. This hypercalcemia was treated with copious IV fluids, IV Lasix and he also receives had a dose of zoledronic acid in the hospital today. He is now stable, ready for discharge to subacute nursing facility after being seen by Physical therapy in consultation who recommended this. Please see the hospital problems and discharge problems above for details of the hospital course including diagnostics and treatment. The plan of care including medications, prognosis, follow-up including alarm symptoms for which medical care should be sought were reviewed with the patient and any available family members/caretakers. The patient is agreeable to discharge today, and all questions were answered by me to their satisfaction. Hospital Course Note:: Discharge summary on patient named ABIOLA BARNEY admitted to [facility] on 05/22/16 by Scarlett Weber MD. Date of discharge is []. - Physical Exam Vital Signs: Last Vital Signs Temp 98 F 05/26/16 04:51 Pulse 97 05/26/16 10:22 Resp 19 05/26/16 10:22 BP 136/61 05/26/16 10:22 Pulse Ox 96 05/26/16 10:22 Oxygen Pulse Oxygen Saturation 96 O2 Device Nasal Cannula Oxygen Flow Rate 2 Fraction of Inspired Oxygen ( FIO2) Constitutional: No apparent distress, Alert, Well nourished. negative: Confused , Well appearing Oriented to: Time, Person, Place Exam: Elderly gentleman resting comfortably in bed this morning. He is agreeable to discharge to nursing facility today. - HEENT Head: Normal (normocephalic, atraumatic.), Other (No cervical lymphadenopathy. No supraclavicular lymphadenopathy. Neck: No palpable mass, supple , trachea midline.) Eye: Normal (pupils equal, reactive to light, and round; EOMI, Sclera white) Oropharynx: Normal (Pharynx: Moist without exudate,Gums-no swelling, No oropharyngeal lesions or erythema, Mucous membranes are dry.) - Respiratory/Cardiovascular Respiratory: Normal - CTA (Clear to auscultation bilaterally. No wheezing, rales , rhonchi. Chest wall movements are symmetric. No use of accessory muscles to breathe.) Cardiovascular: Normal (RRR , Normal S1, S2. No murmurs, rubs, or gallops. PMI non-displaced. Carotids: no carotid bruits. No bradycardia or tachycardia. DP pulses 2+ bilaterally.) - GI Auscultation: Normal (normal active sounds) Palpation: Normal (Soft,non distended,nontender. No hepatosplenomegaly.) Tenderness: Non tender (No rebound or guarding) Paris's Sign: Negative - Musculoskeletal Back: Normal (Non-Tender) Extremities: Normal (Normal tone, DP pulses 2+ bilaterally, No cyanosis or edema bilaterally, FROM bilaterally.) - Integumentary Lymphatics: Normal (No cervical lymphadenopathy. No supraclavicular lymphadenopathy.) - Neurologic Memory Impaired: Normal Cerebellar: Unable to Test Mood Description: Normal (Fully oriented. Normal and appropriate affect.) Perception: Normal (Normal and appropriate affect.)
[2016-05-26 14:01] VITALS: BP 130/70; PULSE 85; TEMP 98.5
== END 2016-05-26 16:42 | DRG 641 ==
LOC: ED 11:03 → MPS3 16:08
PROVIDERS: ADMIT Hospitalist; ATTEND Internal Medicine
DX: E83.52 Hypercalcemia (principal); F03.90 Unspecified dementia, unspecified severity, without behavioral disturbance, psychotic disturbance, mood disturbance, and anxiety; D49.1 Neoplasm of unspecified behavior of respiratory system; I10 Essential (primary) hypertension; J43.2 Centrilobular emphysema; K21.9 Gastro-esophageal reflux disease without esophagitis; E03.9 Hypothyroidism, unspecified; I25.10 Atherosclerotic heart disease of native coronary artery without angina pectoris; E78.00 Pure hypercholesterolemia, unspecified; G47.33 Obstructive sleep apnea (adult) (pediatric); J45.909 Unspecified asthma, uncomplicated; M62.81 Muscle weakness (generalized); Z91.81 History of falling; Z79.02 Long term (current) use of antithrombotics/antiplatelets; Z87.891 Personal history of nicotine dependence; Z80.49 Family history of malignant neoplasm of other genital organs; Z85.46 Personal history of malignant neoplasm of prostate; Z88.0 Allergy status to penicillin
CPT/HCPCS: 36415; 70450; 71020; 72170; 72220; 80048; 80053; 81001; 82330; 83735; 84132; 84443; 84484; 85025; 85610; 85730; 87040; 87086; 93005; 94640; 96360; 96372; 97161; 97165; 99284; G0237; J1650; J1940; J3475; J3489; J3490; J7030; J7620